=== PATIENT | male | born 1990 | race Caucasian/White ===

== ENCOUNTER 2018-11-13 02:00 | Emergency (ER) | payer OTHER ==
[2018-11-13] MEDS ORDERED: Sodium Chloride 0.9% 1,000 ML IV ONE (02:19)
[2018-11-13] MEDS ORDERED: Ondansetron 4 MG/2 ML SDV IVPUSH ONE (02:19)
[2018-11-13] MEDS ORDERED: Morphine 2 MG/ML Syringe IVPUSH ONE (02:19)
[2018-11-13] MEDS ORDERED: Ketorolac 30 MG/ML SDV IVPUSH ONE (02:19)
[2018-11-13] MEDS ORDERED: Sodium Chloride 0.9% 10 ML Syringe FLUSH PRN (02:19)
[2018-11-13] MEDS ORDERED: Sodium Chloride 0.9% 2.5 ML Syringe FLUSH PRN (02:19)
[2018-11-13] MEDS ORDERED: Pantoprazole 40 MG Vial IVPUSH ONE (02:23)
[2018-11-13] MEDS ORDERED: Pantoprazole 40 MG Vial ONE (02:23)
--- NOTE | 2018-11-13 02:23 | EDM.PDOC ---
ED HPI GENERAL MEDICAL PROBLEM - General Chief Complaint: Abdominal Pain Stated Complaint: NAUSEA Time Seen by Provider: 11/13/18 02:07 - History of Present Illness INITIAL COMMENTS - FREE TEXT/NARRATIVE: HISTORY AND PHYSICAL: History of present illness: The patient is a 28-year-old male who has a history of a right inguinal hernia that he says has been bothering him for the last few months and he underwent an ultrasound here on October 19 revealing a fat-containing mild to moderately sized inguinal hernia without any bowel involvement; the patient says he followed up with Dr. Jimenez in the clinic and they're discussing options for possible repair more due to his discomfort then to significant findings on the ultrasound. He says that he has been dealing with this pain and he is now also having mid right abdominal pain and upper abdominal pain that feels burning and it makes him feel clammy and sweaty and shaky and cold as well as nauseated. He said he had some of this yesterday but it was worse today. He had no diarrhea or vomiting and no documented fever. He did not pass out or black out and has no chest pain or shortness of breath. He only took one dose of ibuprofen earlier. He has no history of food intolerance or trouble with foods bothering his stomach. He does not take an abundant amount of antacids and he has a history of an appendectomy. Review of systems: As per history of present illness and below otherwise all systems reviewed and negative. Past medical history: As per history of present illness and as reviewed below otherwise noncontributory. Surgical history: As per history of present illness and as reviewed below otherwise noncontributory. Social history: No reported history of drug or alcohol abuse. Family history: As per history of present illness and as reviewed below otherwise noncontributory. Physical exam: General: Well-developed well-nourished man who is nontoxic and vital signs are noted by me. HEENT: Atraumatic, normocephalic, negative for conjunctival pallor or scleral icterus, mucous membranes tacky throat clear, neck supple, nontender, trachea midline. Lungs: Clear to auscultation, breath sounds equal bilaterally, chest nontender. Heart: S1S2, regular rate and rhythm no overt Abdomen: Soft, nondistended, nerve with deep palpation on the right side of the abdomen from the right upper to mid abdominal areas without rebound or guarding. Bowel sounds are hypoactive and there is no tympany on percussion Negative for masses or hepatosplenomegaly. Negative for costovertebral tenderness. Pelvis: Stable nontender. Genitourinary: The full exam is deferred but in the right inguinal area there is a palpable fullness which seems to be tender to the patient but it is not bulging or with any significant findings on my exam indicative of enlargement or entrapment of any bowel. Rectal: Deferred. Extremities: Atraumatic, negative for cords or calf pain. Neurovascular unremarkable. Neuro: Awake, alert, oriented. Cranial nerves II through XII unremarkable. Cerebellum unremarkable. Motor and sensory unremarkable throughout. Exam nonfocal. Diagnostics: CBC CMP amylase lipase H. pylori UA disc and the abdomen and pelvis Therapeutics: IV fluids Zofran Protonix Toradol morphine All testing results were discussed with the patient and advised follow-up with his provider at [facility] as well as with Dr. Jimenez. Advised on dietary restrictions and clct-sed-hflcyli pain medication. I also advised on over-the- counter Prevacid or omeprazole that he can take if he feels that the burning is returning. Impression: Right-sided abdominal pain etiology unclear stable, history of fat-containing right inguinal hernia chronic Definitive disposition and diagnosis as appropriate pending reevaluation and review of above. Right Upper Abdominal Pain Score (Numeric/FACES): 4 - Related Data Allergies Allergy/AdvReac Type Severity Reaction Status Date / Time No Known Allergies Allergy Verified 11/13/18 02:11 Home Meds: Home Meds . [No Known Home Meds] 11/13/18 [History] Past Medical History HEENT History: Reports: None Cardiovascular History: Reports: None Respiratory History: Reports: None Genitourinary History: Reports: None Musculoskeletal History: Reports: None Neurological History: Reports: None Psychiatric History: Reports: Anxiety Endocrine/Metabolic History: Reports: None Hematologic History: Reports: None Oncologic (Cancer) History: Reports: None Dermatologic History: Reports: None - Infectious Disease History Infectious Disease History: Reports: Chicken Pox - Past Surgical History Head Surgeries/Procedures: Reports: None HEENT Surgical History: Reports: None GI Surgical History: Reports: Appendectomy, Hernia, Inguinal Social & Family History - Tobacco Use Smoking Status *Q: Never Smoker - Caffeine Use Caffeine Use: Reports: Coffee - Recreational Drug Use Recreational Drug Use: No ED ROS GENERAL - Review of Systems Review Of Systems: ROS reveals no pertinent complaints other than HPI. ED EXAM, GENERAL - Physical Exam Exam: See Below (See dictation) Course - Vital Signs Last Recorded V/S: Last Vital Signs Temp 36.3 C 11/13/18 02:09 Pulse 80 11/13/18 02:09 Resp 18 11/13/18 02:09 BP 142/93 H 11/13/18 02:09 Pulse Ox 97 11/13/18 02:09 - Orders/Labs/Meds Orders: Active Orders 24 hr Category Date Time Status Sodium Chloride 0.9% [Saline Flush] Med 11/13/18 02:19 Active 10 ml FLUSH ASDIRECTED PRN Sodium Chloride 0.9% [Saline Flush] Med 11/13/18 02:19 Active 2.5 ml FLUSH ASDIRECTED PRN Saline Lock Insert [OM.PC] Stat Oth 11/13/18 02:19 Ordered Medication Orders Sodium Chloride (Saline Flush) 10 ml FLUSH ASDIRECTED PRN PRN Reason: Keep Vein Open Sodium Chloride (Saline Flush) 2.5 ml FLUSH ASDIRECTED PRN PRN Reason: Keep Vein Open Labs: Laboratory Tests 11/13/18 11/13/18 11/13/18 Range/Units 02:30 02:30 02:30 WBC 11.76 H (4.0-11.0) K/uL RBC 4.43 L (4.50-5.90) M/uL Hgb 14.6 (13.0-17.0) g/dL Hct 40.2 (38.0-50.0) % MCV 90.7 (80.0-98.0) fL MCH 33.0 H (27.0-32.0) pg MCHC 36.3 (31.0-37.0) g/dL RDW Std Deviation 41.0 (28.0-62.0) fl RDW Coeff of Bhaskar 12 (11.0-15.0) % Plt Count 368 (150-400) K/uL MPV 8.70 (7.40-12.00) fL Neut % (Auto) 67.2 (48.0-80.0) % Lymph % (Auto) 24.8 (16.0-40.0) % [place] % (Auto) 6.7 (0.0-15.0) % Eos % (Auto) 1.0 (0.0-7.0) % Baso % (Auto) 0.3 (0.0-1.5) % Neut # (Auto) 7.9 H (1.4-5.7) K/uL Lymph # (Auto) 2.9 H (0.6-2.4) K/uL [place] # (Auto) 0.8 (0.0-0.8) K/uL Eos # (Auto) 0.1 (0.0-0.7) K/uL Baso # (Auto) 0.0 (0.0-0.1) K/uL Nucleated RBC % 0.0 /100WBC Nucleated RBCs # 0 K/uL Sodium 143 (136-148) mmol/L Potassium 4.1 (3.5-5.1) mmol/L Chloride 104 (98-107) mmol/L Carbon Dioxide 26.9 (21.0-32.0) mmol/L BUN 10 (7.0-18.0) mg/dL Creatinine 0.9 (0.8-1.3) mg/dL Est Cr Clr Drug Dosing 121.97 mL/min Estimated GFR (MDRD) > 60.0 ml/min Glucose 129 H (74-106) mg/dL Calcium 9.3 (8.5-10.1) mg/dL Total Bilirubin 0.3 (0.2-1.0) mg/dL AST 21 (15-37) IU/L ALT 35 (14-63) IU/L Alkaline Phosphatase 81 (46-116) U/L Total Protein 7.7 (6.4-8.2) g/dL Albumin 4.1 (3.4-5.0) g/dL Globulin 3.6 (2.6-4.0) g/dL Albumin/Globulin Ratio 1.1 (0.9-1.6) Amylase 46 (25-115) U/L Lipase 90 (73-393) U/L Urine Color Urine Appearance Urine pH Ur Specific [place] Urine Protein Urine Glucose (UA) Urine Ketones Urine Occult Blood Urine Nitrite Urine Bilirubin Urine Ictotest Urine Urobilinogen Ur Leukocyte Esterase Urine RBC Urine WBC Ur Epithelial Cells Ur Squamous Epith Cells Ur Renal Epithelial Cell Calcium Oxalate Crystal Uric Acid Crystals Triple Phos Crystals Other Crystals Amorphous Sediment Urine Bacteria Hyaline Casts Fine Granular Casts Coarse Granular Casts Waxy Casts RBC Casts WBC Casts Urine Mucus Urine Other Urine Trichomonas Urine Yeast Urine Sperm Ur Oval Fat Bodies Urinalysis Comment H. pylori IgG Antibody NEGATIVE (NEG) 11/13/18 11/13/18 Range/Units 02:32 03:30 WBC (4.0-11.0) K/uL RBC (4.50-5.90) M/uL Hgb (13.0-17.0) g/dL Hct (38.0-50.0) % MCV (80.0-98.0) fL MCH (27.0-32.0) pg MCHC (31.0-37.0) g/dL RDW Std Deviation (28.0-62.0) fl RDW Coeff of Hbaskar (11.0-15.0) % Plt Count (150-400) K/uL MPV (7.40-12.00) fL Neut % (Auto) (48.0-80.0) % Lymph % (Auto) (16.0-40.0) % [place] % (Auto) (0.0-15.0) % Eos % (Auto) (0.0-7.0) % Baso % (Auto) (0.0-1.5) % Neut # (Auto) (1.4-5.7) K/uL Lymph # (Auto) (0.6-2.4) K/uL [place] # (Auto) (0.0-0.8) K/uL Eos # (Auto) (0.0-0.7) K/uL Baso # (Auto) (0.0-0.1) K/uL Nucleated RBC % /100WBC Nucleated RBCs # K/uL Sodium (136-148) mmol/L Potassium (3.5-5.1) mmol/L Chloride (98-107) mmol/L Carbon Dioxide (21.0-32.0) mmol/L BUN (7.0-18.0) mg/dL Creatinine (0.8-1.3) mg/dL Est Cr Clr Drug Dosing mL/min Estimated GFR (MDRD) ml/min Glucose (74-106) mg/dL Calcium (8.5-10.1) mg/dL Total Bilirubin (0.2-1.0) mg/dL AST (15-37) IU/L ALT (14-63) IU/L Alkaline Phosphatase (46-116) U/L Total Protein (6.4-8.2) g/dL Albumin (3.4-5.0) g/dL Globulin (2.6-4.0) g/dL Albumin/Globulin Ratio (0.9-1.6) Amylase (25-115) U/L Lipase (73-393) U/L Urine Color Cancelled YELLOW Urine Appearance Cancelled CLEAR Urine pH Cancelled 6.0 Ur Specific [place] Cancelled 1.010 Urine Protein Cancelled NEGATIVE Urine Glucose (UA) Cancelled NEGATIVE Urine Ketones Cancelled NEGATIVE Urine Occult Blood Cancelled NEGATIVE Urine Nitrite Cancelled NEGATIVE Urine Bilirubin Cancelled NEGATIVE Urine Ictotest Cancelled Urine Urobilinogen Cancelled 0.2 Ur Leukocyte Esterase Cancelled NEGATIVE Urine RBC Cancelled Urine WBC Cancelled Ur Epithelial Cells Cancelled Ur Squamous Epith Cells Cancelled Ur Renal Epithelial Cell Cancelled Calcium Oxalate Crystal Cancelled Uric Acid Crystals Cancelled Triple Phos Crystals Cancelled Other Crystals Cancelled Amorphous Sediment Cancelled Urine Bacteria Cancelled Hyaline Casts Cancelled Fine Granular Casts Cancelled Coarse Granular Casts Cancelled Waxy Casts Cancelled RBC Casts Cancelled WBC Casts Cancelled Urine Mucus Cancelled Urine Other Cancelled Urine Trichomonas Cancelled Urine Yeast Cancelled Urine Sperm Cancelled Ur Oval Fat Bodies Cancelled Urinalysis Comment Cancelled H. pylori IgG Antibody (NEG) Meds: Medications Generic Name Dose Route Start Last Admin Trade Name Freq PRN Reason Stop Dose Admin Sodium Chloride 10 ml 11/13/18 02:19 Saline Flush FLUSH ASDIRECTED PRN Keep Vein Open Sodium Chloride 2.5 ml 11/13/18 02:19 Saline Flush FLUSH ASDIRECTED PRN Keep Vein Open Discontinued Medications Generic Name Dose Route Start Last Admin Trade Name Freq PRN Reason Stop Dose Admin Sodium Chloride 1,000 mls @ 999 mls/hr 11/13/18 02:19 11/13/18 02:34 Normal Saline IV 11/13/18 03:19 999 mls/hr STAT ONE Administration Iopamidol 100 ml 11/13/18 03:24 11/13/18 03:24 Isovue Multipack-370 (76%) IVPUSH 11/13/18 03:25 100 ml ONETIME STA Administration Ketorolac Tromethamine 30 mg 11/13/18 02:19 11/13/18 02:36 Toradol IVPUSH 11/13/18 02:20 30 mg ONETIME ONE Administration Morphine Sulfate 2 mg 11/13/18 02:19 11/13/18 02:37 Morphine IVPUSH 11/13/18 02:20 2 mg ONETIME ONE Administration Ondansetron HCl 4 mg 11/13/18 02:19 11/13/18 02:35 Zofran IVPUSH 11/13/18 02:20 4 mg ONETIME ONE Administration Pantoprazole Sodium 80 mg 11/13/18 02:23 11/13/18 02:38 Protonix Iv IVPUSH 11/13/18 02:24 80 mg .BOLUS ONE Administration Pantoprazole Sodium Confirm 11/13/18 02:23 11/13/18 02:37 Protonix Iv Administered 11/13/18 02:24 Not Given Dose 80 mg .ROUTE .STK-MED ONE Departure - Departure Time of Disposition: 04:13 Disposition: Home, Self-Care 01 Condition: Good Clinical Impression: Abdominal pain Qualifiers: Abdominal location: unspecified location Qualified Code(s): R10.9 - Unspecified abdominal pain - Discharge Information Referrals: PCP,None [Primary Care Provider] - Forms: ED Department Discharge Additional Instructions: The following information is given to patients seen in the emergency department who are being discharged to home. This information is to outline your options for follow-up care. We provide all patients seen in our emergency department with a follow-up referral. The need for follow-up, as well as the timing and circumstances, are variable depending upon the specifics of your emergency department visit. If you don't have a primary care physician on staff, we will provide you with a referral. We always advise you to contact your personal physician following an emergency department visit to inform them of the circumstance of the visit and for follow-up with them and/or the need for any referrals to a consulting specialist. The emergency department will also refer you to a specialist when appropriate. This referral assures that you have the opportunity for followup care with a specialist. All of these measure are taken in an effort to provide you with optimal care, which includes your followup. Under all circumstances we always encourage you to contact your private physician who remains a resource for coordinating your care. When calling for followup care, please make the office aware that this follow-up is from your recent emergency room visit. If for any reason you are refused follow-up, please contact the [facility] emergency department at and ask to speak to the emergency department charge nurse. [facility] Professional Building [address] [place] [id number] Please contact her provider at [facility] as well as Dr. Jimenez in our clinic for follow-up care and return to ER as needed and as discussed. Use over- the-counter medications for discomfort such as Tylenol or ibuprofen as well as Prevacid or omeprazole if you feel you're having more ringlike sensation. He may also use [id number] Maalox. These watch your diet trying to reduce and /or eliminate caffeine use fatty foods fast foods and junk foods. - My Orders Last 24 Hours: My Active Orders 11/13/18 02:19 Sodium Chloride 0.9% [Saline Flush] 10 ml FLUSH ASDIRECTED PRN Sodium Chloride 0.9% [Saline Flush] 2.5 ml FLUSH ASDIRECTED PRN Saline Lock Insert [OM.PC] Stat - Assessment/Plan Last 24 Hours: My Active Orders 11/13/18 02:19 Sodium Chloride 0.9% [Saline Flush] 10 ml FLUSH ASDIRECTED PRN Sodium Chloride 0.9% [Saline Flush] 2.5 ml FLUSH ASDIRECTED PRN Saline Lock Insert [OM.PC] Stat
[2018-11-13 02:58] LABS: CHLORIDE,CL 104 mmol/L (98-107); SODIUM,NA 143 mmol/L (136-148)
[2018-11-13] MEDS ORDERED: Iopamidol 755 MG/ML 500 ML Multipack Bottle IVPUSH STA (03:24)
--- NOTE | 2018-11-13 04:05 | CT ---
INDICATION: Pain TECHNIQUE: CT abdomen and pelvis acquired with 100 cc Isovue 370 IV contrast. COMPARISON: None FINDINGS: Lower chest: Unremarkable. Liver: Unremarkable. Spleen: Unremarkable. Pancreas: Unremarkable. Gallbladder and bile ducts: Unremarkable. Adrenal glands: Unremarkable. Kidneys: Unremarkable. GI tract: Unremarkable. Appendix is not seen. No inflammatory changes seen in the pericecal region. Vascular structures: Unremarkable. Lymph nodes: Unremarkable. Miscellaneous: Unremarkable. No free air or significant free fluid. Pelvic Organs: Unremarkable. Bones: Unremarkable for age. IMPRESSION: No acute intra-abdominal inflammatory process identified. Please note that all CT scans at this facility use dose modulation, iterative reconstruction, and/or weight-based dosing when appropriate to reduce radiation dose to as low as reasonably achievable. Dictated by Britta Galeas MD @ Nov 13 2018 4:00AM Signed by Dr. Britta Galeas @ Nov 13 2018 4:03AM
== END 2018-11-13 04:25 | disposition home or self-care (01) ==
LOC: MW.ED 02:00
DX: R10.9 Unspecified abdominal pain (principal); Z87.19 Personal history of other diseases of the digestive system
CPT/HCPCS: 36415; 74177; 80053; 81003; 82150; 83690; 85025; 86677; 96361; 96374; 96375; 99284; C9113; J1885; J2270; J2405; J7040; Q9967

== ENCOUNTER 2019-02-21 06:49 | Day surgery (SDC) | payer MEDICAID, OTHER ==
[~2019-02-21 06:49] MED LIST: Lactated Ringers 1,000 ML IV SCH; Sodium Chloride 0.9% 10 ML SDV IV PRN; Sodium Chloride 0.9% 10 ML Syringe FLUSH PRN; Sodium Chloride 0.9% 2.5 ML Syringe FLUSH PRN; ceFAZolin 2 GM in Premix Bag 1 BAG IV ONE
--- NOTE | 2019-02-22 14:49 | OR ---
SURGEON: RICK LADD MD DATE OF PROCEDURE: 02/22/2019 PREOPERATIVE DIAGNOSIS: Right inguinal hernia. POSTOPERATIVE DIAGNOSIS: Right indirect inguinal hernia. PROCEDURE PERFORMED: Right inguinal hernia repair. ANESTHESIA: General LMA, local. FLUIDS: 1000 mL crystalloid. ESTIMATED BLOOD LOSS: 5 mL. FINDINGS: Small right indirect inguinal hernia sac containing fat. Easily reduced back into the abdomen. COMPLICATIONS: None. INDICATIONS: The patient is a 29-year-old male who presents with a right inguinal bulge. A recent ultrasound showed a right fat containing inguinal hernia. The patient and I discussed the need for repair. I explained the procedure, expected perioperative course, and risks including bleeding, infection, or damage to surrounding structures. He verbalized understanding and wishes to proceed. PROCEDURE IN DETAIL: The patient was brought in to the OR and placed on the OR table in supine position. A time-out was completed verifying the patient's name, age, date of , allergies, and procedure to be performed. General LMA anesthesia was induced. The abdomen was prepped and draped in usual standard fashion. I anesthetized the right lower abdomen with 0.5% Marcaine plain. An incision was made one fingerbreadth above the inguinal ligament using a #10 blade. Cautery was used to dissect down to level of subcutaneous fat. Using cautery and blunt dissection, I dissected down to the level of the external oblique. The external oblique was then opened using a #15 blade. I then used a Metzenbaum scissors to open the fibers both laterally and medially along the length of the fibers and opened up the external inguinal ring. While doing so the nerve underlying this was partially cut. I cut the nerve fully to avoid a neuroma and pain afterwards. I tied off the end using an 0 Vicryl suture. I then encircled the cord structures at the level of the pubic tubercle and placed a Wendy around them. I then turned my attention to the anterior aspect of the cord. A small hernia sac containing preperitoneal fat was identified. Using gentle blunt dissection, I dissected this free of the surrounding cord structures and reduced it back into the abdomen. A small plug and patch were brought into the field. I attempted to place the patch within the inguinal canal, but it was too large given such a small defect. The decision was made to just place a patch. I trimmed up the mesh to allow the tails of it to go around the cord structures and reinforce the internal ring. The mesh was then secured medially at the pubic tubercle, inferiorly to the reflected edge of the inguinal ligament into the conjoint tendon and transversalis superiorly with interrupted 0 Ethibond sutures. I repaired my small rent in the superior fascia with my repair. The ends of the patch were draped around the cord structures at the level of the internal ring and I secured them with an interrupted 0 Ethibond suture. I made sure that there was enough room for the cord structures to pass through without any undue tension, but with the hernia sac still reduced. A Valsalva maneuver was performed which showed no recurrence of the hernia. The area was then irrigated with normal saline and found to be hemostatic. The external oblique was reapproximated using a continuous 3-0 Vicryl suture. The Mehdi's fascia was closed with a running 3-0 Vicryl suture and the subcutaneous fat closed with a running 3-0 Vicryl suture as well. The skin was closed with a running 4-0 Monocryl stitch. Steri-Strips and sterile dressings were applied. The patient tolerated the procedure well and was transferred to the PACU in stable condition. RANDALL PEPPER /[id number] ROYA
== END 2019-02-21 07:00 | disposition home or self-care (01) ==
LOC: MW.SDS 06:49
PROVIDERS: ATTEND Surgery
DX: K40.90 Unilateral inguinal hernia, without obstruction or gangrene, not specified as recurrent (principal)

== ENCOUNTER 2019-02-22 11:11 | Day surgery (SDC) | payer MEDICAID ==
[2019-02-22] MEDS ORDERED: Propofol 200 MG/20 ML SDV ONE (11:46)
[2019-02-22] MEDS ORDERED: Midazolam 1 MG/ML 2 ML SDV ONE (11:46)
[2019-02-22] MEDS ORDERED: fentaNYL 100 MCG/2 ML SDV ONE (11:46)
--- NOTE | 2019-02-22 11:58 | PCM.PREANE ---
Preanesthetic Assessment - Anesthesia/Transfusion/Family Hx Anesthesia History: Prior Anesthesia Without Reaction Family History of Anesthesia Reaction: No Family History of Anesthesia Reaction, Other: fam hx of DVTs, no formal dx of leiden etc. Pt has no personal hx of throm Transfusion History: No Prior Transfusion(s) - Review of Systems General: No Symptoms Pulmonary: No Symptoms Cardiovascular: No Symptoms Gastrointestinal: No Symptoms Neurological: No Symptoms Other: Reports: None - Physical Assessment O2 Sat by Pulse Oximetry: 97 Respiratory Rate: 15 Vital Signs: Last Vital Signs Temp 97.7 F 02/22/19 11:32 Pulse 70 02/22/19 11:32 Resp 15 02/22/19 11:32 BP 122/74 02/22/19 11:32 Pulse Ox 97 02/22/19 11:32 Height: 5 ft 9.5 in Weight: 84.368 kg ASA Class: 1 Mental Status: Alert & Oriented x3 Airway Class: Mallampati = 2 Dentition: Reports: Normal Dentition ROM/Head Extension: Full Lungs: Clear to Auscultation, Normal Respiratory Effort Cardiovascular: Regular Rate, Regular Rhythm - Allergies Allergies/Adverse Reactions: Allergies Allergy/AdvReac Type Severity Reaction Status Date / Time No Known Allergies Allergy Verified 02/15/19 09:50 - Blood Blood Available: No - Anesthesia Plan Pre-Op Medication Ordered: None - Acknowledgements Pt an Appropriate Candidate for the Planned Anesthesia: Yes Alternatives and Risks of Anesthesia Discussed w Pt/Guardian: Yes Pt/Guardian Understands and Agrees with Anesthesia Plan: Yes PreAnesthesia Questionnaire HEENT History: Reports: Other (See Below) Other HEENT History: wears glasses Cardiovascular History: Reports: Other (See Below) Other Cardiovascular History: father and grandmother had DVT post-op. Respiratory History: Reports: None Genitourinary History: Reports: None Musculoskeletal History: Reports: None Neurological History: Reports: Other (See Below) Other Neuro History: hx of motion sickness Psychiatric History: Reports: Anxiety Endocrine/Metabolic History: Reports: None Hematologic History: Reports: None Oncologic (Cancer) History: Reports: None Dermatologic History: Reports: None - Infectious Disease History Infectious Disease History: Reports: Chicken Pox - Past Surgical History Head Surgeries/Procedures: Reports: None HEENT Surgical History: Reports: None GI Surgical History: Reports: Appendectomy - SUBSTANCE USE Smoking Status *Q: Never Smoker Recreational Drug Use History: No - HOME MEDS Home Medications: Home Meds . [No Known Home Meds] 11/13/18 [History] - CURRENT (IN HOUSE) MEDS Current Meds: Current Medications Discontinued Medications Fentanyl (Sublimaze) Confirm Administered Dose 100 mcg .ROUTE .STK-MED ONE Stop: 02/22/19 11:47 Midazolam HCl (Versed 1 Mg/Ml) Confirm Administered Dose 2 mg .ROUTE .STK-MED ONE Stop: 02/22/19 11:47 Propofol (Diprivan 20 Ml) Confirm Administered Dose 200 mg .ROUTE .STK-MED ONE Stop: 02/22/19 11:47
[2019-02-22] MEDS ORDERED: Bupivacaine 0.5% 30 ML SDV ONE (11:59)
[2019-02-22] MEDS ORDERED: Lidocaine 2% 5 ML SDV ONE (12:02)
[2019-02-22] MEDS ORDERED: Ondansetron 4 MG/2 ML SDV ONE (12:34)
[2019-02-22] MEDS ORDERED: Dexamethasone 4 MG/ML 5 ML MDV ONE (12:34)
[2019-02-22] MEDS ORDERED: Ketorolac 30 MG/ML SDV ONE (12:34)
[2019-02-22] MEDS ORDERED: HYDROmorphone 2 MG/ML Syringe ONE (12:37)
[2019-02-22] MEDS ORDERED: ceFAZolin 1 GM Vial ONE (12:39)
[2019-02-22] MEDS ORDERED: Ondansetron 4 MG/2 ML SDV IVPUSH PRN (12:45)
[2019-02-22] MEDS ORDERED: fentaNYL 100 MCG/2 ML SDV IVPUSH PRN (12:45)
[2019-02-22] MEDS ORDERED: HYDROmorphone 2 MG/ML SDV IVPUSH PRN (12:45)
--- NOTE | 2019-02-22 13:43 | PCM.OPNOTE ---
- General Post-Op/Procedure Note Date of Surgery/Procedure: 02/22/19 Operative Procedure(s): Right inguinal hernia repair Findings: Right direct inguinal hernia repair. Indirect sac contained pre-peritoneal fat. Pre Op Diagnosis: Right inguinal hernia Post-Op Diagnosis: Right indirect inguinal hernia Anesthesia Technique: General LMA Primary Surgeon: Katherine Jimenez Fluid Replacement, Intraop: 1,000 EBL in mLs: 5 Condition: Good
[2019-02-22] MEDS ORDERED: Acetaminophen/oxyCODONE 325-5 MG Tab PO PRN (13:45)
--- NOTE | 2019-02-22 14:21 | PCM.POSTAN ---
POST ANESTHESIA ASSESSMENT - MENTAL STATUS Mental Status: Alert, Oriented - RESPIRATORY Respiratory Status: Respiratory Rate WNL, Airway Patent, O2 Saturation Stable - CARDIOVASCULAR CV Status: Pulse Rate WNL, Blood Pressure Stable - GASTROINTESTINAL GI Status: No Symptoms - PAIN Pain Score: 4 Free Text/Narrative:: Pt educated on pain management post op by Dr. See. - POST OP HYDRATION Hydration Status: Adequate & Stable
--- NOTE | 2019-02-22 14:49 | OR ---
SURGEON: RICK LADD MD DATE OF PROCEDURE: 02/22/2019 PREOPERATIVE DIAGNOSIS: Right inguinal hernia. POSTOPERATIVE DIAGNOSIS: Right indirect inguinal hernia. PROCEDURE PERFORMED: Right inguinal hernia repair. ANESTHESIA: General LMA, local. FLUIDS: 1000 mL crystalloid. ESTIMATED BLOOD LOSS: 5 mL. FINDINGS: Small right indirect inguinal hernia sac containing fat. Easily reduced back into the abdomen. COMPLICATIONS: None. INDICATIONS: The patient is a 29-year-old male who presents with a right inguinal bulge. A recent ultrasound showed a right fat containing inguinal hernia. The patient and I discussed the need for repair. I explained the procedure, expected perioperative course, and risks including bleeding, infection, or damage to surrounding structures. He verbalized understanding and wishes to proceed. PROCEDURE IN DETAIL: The patient was brought in to the OR and placed on the OR table in supine position. A time-out was completed verifying the patient's name, age, date of , allergies, and procedure to be performed. General LMA anesthesia was induced. The abdomen was prepped and draped in usual standard fashion. I anesthetized the right lower abdomen with 0.5% Marcaine plain. An incision was made one fingerbreadth above the inguinal ligament using a #10 blade. Cautery was used to dissect down to level of subcutaneous fat. Using cautery and blunt dissection, I dissected down to the level of the external oblique. The external oblique was then opened using a #15 blade. I then used a Metzenbaum scissors to open the fibers both laterally and medially along the length of the fibers and opened up the external inguinal ring. While doing so the nerve underlying this was partially cut. I cut the nerve fully to avoid a neuroma and pain afterwards. I tied off the end using an 0 Vicryl suture. I then encircled the cord structures at the level of the pubic tubercle and placed a Wendy around them. I then turned my attention to the anterior aspect of the cord. A small hernia sac containing preperitoneal fat was identified. Using gentle blunt dissection, I dissected this free of the surrounding cord structures and reduced it back into the abdomen. A small plug and patch were brought into the field. I attempted to place the patch within the inguinal canal, but it was too large given such a small defect. The decision was made to just place a patch. I trimmed up the mesh to allow the tails of it to go around the cord structures and reinforce the internal ring. The mesh was then secured medially at the pubic tubercle, inferiorly to the reflected edge of the inguinal ligament into the conjoint tendon and transversalis superiorly with interrupted 0 Ethibond sutures. I repaired my small rent in the superior fascia with my repair. The ends of the patch were draped around the cord structures at the level of the internal ring and I secured them with an interrupted 0 Ethibond suture. I made sure that there was enough room for the cord structures to pass through without any undue tension, but with the hernia sac still reduced. A Valsalva maneuver was performed which showed no recurrence of the hernia. The area was then irrigated with normal saline and found to be hemostatic. The external oblique was reapproximated using a continuous 3-0 Vicryl suture. The Mehdi's fascia was closed with a running 3-0 Vicryl suture and the subcutaneous fat closed with a running 3-0 Vicryl suture as well. The skin was closed with a running 4-0 Monocryl stitch. Steri-Strips and sterile dressings were applied. The patient tolerated the procedure well and was transferred to the PACU in stable condition. RANDALL PEPPER /[id number] ROYA
--- NOTE | 2019-02-22 15:32 | PCM48HPAN ---
Post Anesthesia Note - EVALUATION WITHIN 48HRS OF ANESTHETIC Vital Signs in Normal Range: Yes Patient Participated in Evaluation: Yes Respiratory Function Stable: Yes Airway Patent: Yes Cardiovascular Function Stable: Yes Hydration Status Stable: Yes Pain Control Satisfactory: Yes Nausea and Vomiting Control Satisfactory: Yes Mental Status Recovered: Yes Resp Rate: 15
--- NOTE | 2019-02-22 15:32 | PCM.POSTAN ---
POST ANESTHESIA ASSESSMENT - MENTAL STATUS Mental Status: Alert, Oriented - RESPIRATORY Respiratory Status: Respiratory Rate WNL, Airway Patent, O2 Saturation Stable - CARDIOVASCULAR CV Status: Pulse Rate WNL, Blood Pressure Stable - GASTROINTESTINAL GI Status: No Symptoms - POST OP HYDRATION Hydration Status: Adequate & Stable
== END 2019-02-22 16:46 | disposition home or self-care (01) ==
LOC: MW.SDS 11:11
PROVIDERS: ATTEND Surgery
DX: K40.90 Unilateral inguinal hernia, without obstruction or gangrene, not specified as recurrent (principal); Z86.59 Personal history of other mental and behavioral disorders; Z98.890 Other specified postprocedural states
CPT/HCPCS: 49505; C1781; J0131; J0690; J1100; J1170; J1885; J2001; J2250; J2405; J2704; J3010; J3490; 00830